=== PATIENT | male | born 1980 | race Hispanic/Latino ===

== ENCOUNTER 2020-05-01 04:54 | Emergency (ER) | payer OTHER ==
--- NOTE | 2020-05-01 07:35 | RAD ---
2 VIEWS RIGHT HIP/FEMUR: Date: 05/01/2020 HISTORY: Right hip pain. FINDINGS: Two views of the right hip/femur shows an intramedullary leesa in the right femur. This spans a fractur e which is not completely fused. There is a fracture of the leesa just beneath one of the proximal scre ws. No perihardware lucency or fracture is seen surrounding the distal screws. No obvious acute femor al fracture is seen. IMPRESSION: Nonunion/malunion of femoral fracture. There is a fracture of the femoral leesa and this nonunion/malun ion may be secondary to incomplete fixation secondary to fracture of the femoral leesa. The age of this femoral leesa fracture is uncertain. POS: EAA
[2020-05-01] MEDS ORDERED: HYDROcodone/Acetaminophen 5/325 mg Tablet ONE (11:52)
== END 2020-05-01 12:18 | disposition short-term general hospital (02) ==
LOC: NAV ERS 04:54
DX: T84.84XA Pain due to internal orthopedic prosthetic devices, implants and grafts, initial encounter (principal); S72.91XK Unspecified fracture of right femur, subsequent encounter for closed fracture with nonunion; I10 Essential (primary) hypertension; F32.9 Major depressive disorder, single episode, unspecified; Z79.899 Other long term (current) drug therapy